=== PATIENT | female | born 1995 | race Two or more races ===

== ENCOUNTER 2024-12-03 12:02 | Emergency (ER) | payer BC, MEDICAID, SELFPAY ==
[2024-12-03 12:03] VITALS: BMI 24.8
[2024-12-03 12:11] VITALS: BP 116/72; PULSE 79; RESP 18; TEMP 36.9; O2SAT 98
--- NOTE | 2024-12-03 12:16 | EDNOTE_ITS ---
ED Female Urogenital RME/HPI General Chief complaint: Urogenital-Female Stated complaint: VAGINAL BLEEDING Time Seen by Provider: 12/03/24 12:04 Source: patient Arrival date/time: 12/03/24 12:02 28-year-old female with no known medical history presents to the emergency room with a chief complaint of vaginal spotting x 1 day. Patient is currently 6 weeks . She is a G4, P2. Patient denies any dysuria or vaginal discharge. Mode of arrival: ambulatory Limitations: no limitations Related Data Home Medications ?Medication ?Instructions ?Recorded ?Confirmed ferrous sulfate 324 mg (65 mg 324 mg PO QDAY 07/09/19 08/19/19 iron) tablet,delayed release vit no.95-ferrous 1 tab PO QDAY 07/09/1907/29 fumarate 28 mg-folic acid 800 mcg tablet () hydroxyzine HCl 25 mg tablet 25 mg PO QID PRN Itching 08/19/19 08/19/19 Previous Rx's ?Medication ?Instructions ?Recorded hydrocodone 5 mg-acetaminophen 300 1 tab PO Q4H PRN pa in #30 tabs 08/19/19 mg tablet acetaminophen 650 mg 650 mg PO Q8H PRN fever or p ain 04/27/22 tablet,extended release #30 tabs cyclobenzaprine 10 mg tablet 10 mg PO Q8H PRN muscle s pasm / 04/27/22 pain #15 tabs ibuprofen 600 mg tablet 600 mg PO Q8H PRN fever or p ain 04/27/22 #30 tabs Allergies Allergy/AdvReac Type Severity Reaction Status Date / Time No Known Allergies Allergy Verified 04/27/22 13:02 Review of Systems Review of Systems Systems Reviewed: All systems reviewed, normal except as documented Constitutional Constitutional: Reports system reviewed and no additional complaints, except as documented, Denies fatigue, Denies fever(s), Denies headache(s) and Denies weakness Eyes Eyes: Reports system reviewed and no additional complaints, except as documented, Denies blurry vision and Denies change in vision ENT Ears, Nose, Mouth, and Throat: Reports system reviewed and no additional complaints, except as documented, Denies otalgia, Denies headache(s), Denies nasal congestion, Denies throat swelling and Denies vertigo Cardiovascular Cardiovascular: Reports system reviewed and no additional complaints, except as documented, Denies chest pain, Denies dyspnea and Denies dyspnea on exertion Respiratory Respiratory: Reports system reviewed and no additional complaints, except as documented, Denies chest congestion, Denies cough, Denies dyspnea, Denies dyspnea on exertion and Denies wheezing Gastrointestinal Gastrointestinal: Reports system reviewed and no additional complaints, except as documented, Denies abdominal pain, Denies cramping, Denies nausea and Denies vomiting Genitourinary Genitourinary: Reports system reviewed and no additional complaints, except as documented, Reports abnormal vaginal bleeding and Reports flank pain Musculoskeletal Musculoskeletal: Reports system reviewed and no additional complaints, except as documented and Denies back pain Integumentary/Breasts Skin/Breast: Reports system reviewed and no additional complaints, except as documented and Denies wounds Neurologic Neurologic: Reports system reviewed and no additional complaints, except as documented, Denies confusion, Denies headache(s), Denies lack of coordination, Denies vertigo and Denies weakness Psychiatric Psychiatric: Reports system reviewed and no additional complaints, except as documented, Denies anxiety, Denies confusion, Denies depression, Denies paranoia, Denies suicidal ideation and Denies tactile hallucinations Endocrine Endocrine: Reports system reviewed and no additional complaints, except as documented and Denies fatigue Hematologic/Lymphatic Hematologic/Lymphatic: Reports system reviewed and no additional complaints, except as documented and Denies lymphadenopathy Allergic/Immunologic Allergic/Immunologic: Reports system reviewed and no additional complaints, except as documented, Denies throat swelling, Denies urticaria and Denies wheezing Past Medical History Past Medical History NEUROLOGIC: Negative Neurological Disorders or Seizures CARDIAC: Negative Cardiac Disorders or Congestive Heart Failure RESPIRATORY: Positive Asthma (inhaler 1 month ago); Negative Chronic Obstructive Pulmonary Disease (COPD) GASTROINTESTINAL: Negative Gastrointestinal Disorders, Hepatitis or Colorectal Cancer GENITOURINARY: Negative Genitourinary Disorders, Renal Disease or Prostate Cancer REPRODUCTIVE: Negative Breast Cancer or Testicular Cancer MUSCULOSKELETAL: Negative Musculoskeletal Disorders or Bone Cancer ENDOCRINE: Negative Endocrine Disorders, Diabetes Mellitus Type 1 or Diabetes Mellitus Type 2 HEMATOLOGIC: Negative Blood Disorders OTHER HISTORY: Negative Hospitalization, Autoimmune Disease, Down Syndrome, Developmental Delay, Shingles, Falls, Blood Transfusions, Blood Transfusion Reaction, Anesthesia Reactions, Organ Transplant, Chemotherapy, Radiation Therapy, Hyperbaric Therapy, MRSA, VRSA, Vancomycin-Resistant Enterococci, Human Immunodeficiency Virus (HIV), Chicken Pox, Measles, Mumps, Rubella (Spanish Measles), Pertussis, Clostridium Difficile, Cancer, Breast Cancer, Cervical Cancer, Colorectal Cancer, Lung Cancer, Ovarian Cancer, Prostate Cancer or Testicular Cancer Family History FAMILY HISTORY: Positive Family Cancer; Negative Family Psychiatric Problems, Family Respiratory Disorders, Family Cardiac Disorders, Family Gastrointestinal Problems, Family Surgery or Family Anesthesia Reaction Surgical History SURGICAL: Negative Section or Organ Transplant Social History SMOKING STATUS: Never smoker ED Exam General Limitations: Present no limitations General appearance: Present alert and in no apparent distress Head Head exam: Present atraumatic Eye Eye exam: Present normal appearance, PERRL and EOMI ENT ENT exam: Present normal exam, normal oropharynx and mucous membranes moist Neck Neck exam: Present normal inspection, full ROM and trachea midline Chest Chest inspection: Present normal inspection and symmetric chest wall rise Respiratory Respiratory exam: Present normal lung sounds bilaterally Cardiovascular Cardiovascular exam: Present regular rate, normal rhythm and normal heart sounds Abdominal Exam Abdominal exam: Present soft, tenderness and normal bowel sounds Abdominal tenderness: Present RLQ, LLQ, suprapubic and mild Extremities Exam Extremities exam: Present normal inspection and full ROM Back Exam Back exam: Present normal inspection and full ROM Neurological Exam Neurological exam: Present alert, oriented X3 and CN II-XII intact Psychiatric Psychiatric exam: Present normal affect and normal mood Skin Skin exam: Present warm, dry, intact and normal color Course Quality Measures none Orders Category Date Time Status US OB <= 14 weeks fetus Stat Exams 12/03/24 12:16 Completed ABO/RH Type Stat Lab 12/03/24 13:26 Completed Beta HCG,Quantitative Stat Lab 12/03/24 13:26 Completed CBC Stat Lab 12/03/24 13:26 Completed CMP [Comprehensive Metabolic Panel] Stat Lab 12/03/24 13:26 Completed UA [Urinalysis] Stat Lab 12/03/24 12:55 Completed Vital Signs Vital signs: Vital Signs Temperature 98.4 F 12/03/24 12:11 Pulse Rate 79 12/03/24 12:11 Respiratory Rate 18 12/03/24 12:11 Blood Pressure 116/72 12/03/24 12:11 Pulse Oximetry (%) 98 12/03/24 12:11 Oxygen Delivery Method Room Air 12/03/24 12:11 O2 saturation 98% within normal limits Urogenital - Female MDM Narrative MDM Narrative:: 28-year-old female with no known medical history presents to the emergency room with a chief complaint of vaginal spotting x 1 day. Patient is currently 6 weeks . She is a G4, P2. Patient denies any dysuria or vaginal discharge. Patient is hemodynamically stable and in no apparent distress Physical examination shows a soft nontender abdomen. The patient has no tenderness to the right lower quadrant or left lower quadrant. Ultrasound OB was completed and at this time there is no intrauterine gestation that was visualized. Patient's hCG levels are at 29,444 The patient was educated to follow-up with her AIRPORT RAMP SUPERVISOR in the next 24 to 48 hours or return in 3 days for repeat ultrasound and blood work Patient was discharged and educated to follow-up with primary care provider in the next 24 to 48 hours and return to the emergency room for any evidence of worsening signs or symptoms Patient data External records reviewed:: [facility] records Clinical information provided by:: patient Social determinants that could affect healthcare access:: none Patient has the following chronic illnesses:: No chronic illness How is presenting disease/condition affected by chronic disease/condition?: no chronic disease Evaluation data The following diagnostics were reviewed and interpreted by me:: lab results Lab and/or radiology exams considered but not ordered:: Labs and radiology exams considered and ordered Interpretation Summary: OB ultrasound-Findings: Uterus 8.7 cm intrauterine gestational sac 1.3 cm correspondences 6 weeks 1 day gestational age No pole, no cardiac activity Right ovary 2.8 cm arterial flow Left ovary 3.7 cm arterial flow 15 mm cyst IMPRESSION: Empty intrauterine gestational sac corresponding to 6 weeks 1 day gestational age Recommend transvaginal pelvic sonography follow-up to document viability Medications / Prescriptions Medications or Prescriptions considered but not ordered:: No medication given Medication administrations:: No medication given Consultations Consultation(s) initiated? (list below): No Diagnosis Urogenital Female Differential Diagnosis: urinary tract infection, cystitis and other (Threatened /subchorionic hemorrhage/vaginal bleeding) Most likely diagnosis given after review of the tests above:: Vaginal bleeding in Admission Indicated Admission indicated?: not indicated Admission Request Was there a request for admission?: No Disposition Plan Disposition Plan: Discharge Discharge Attestation Discharge Attestation: The patient and all family members were given an opportunity to ask questions and understood the discharge instructions. Discharge instructions specifically effects, indications for sooner follow up or return to the emergency department, and the expected course of current diagnosis. Patient condition: Stable Discharge Plan Plan Patient Disposition: HOME (Self Care) Discharge Disposition comment: Stable Prescriptions/Referrals Prescriptions/Med Rec: No Action hydroxyzine HCl 25 mg Tablet 25 mg PO QID PRN (Reason: Itching) hydrocodone-acetaminophen 5-300 mg tablet 1 tab PO Q4H MDD 5 PRN (Reason: pain) Qty: 30 0RF PNV cmb#95-ferrous fumarate-FA [] 28 mg iron- 800 mcg Tablet 1 tab PO QDAY ferrous sulfate 324 mg (65 mg iron) Tablet,Delayed Release (Dr/Ec) 324 mg PO QDAY cyclobenzaprine 10 mg tablet 10 mg PO Q8H PRN (Reason: muscle spasm / pain) Qty: 15 0RF acetaminophen 650 mg tablet extended release 650 mg PO Q8H PRN (Reason: fever or pain) Qty: 30 0RF Rx Instructions: swallow whole; do not chew/break/dissolve/open ibuprofen 600 mg tablet 600 mg PO Q8H PRN (Reason: fever or pain) Qty: 30 0RF Referrals: No Primary/Family,Physician [Primary Care Provider] - In 1 week Problem List Clinical Impression: Vaginal bleeding in patient at less than 20 weeks gestation Patient/Caregiver Discharge Instructions Education Materials: Bleeding During Early , ED Dysfunctional Uterine Bleeding Additional Instructions: Please follow-up with your AIRPORT RAMP SUPERVISOR in the next 24 to 48 hours Radiologist is recommending a close follow-up and a repeat ultrasound in 3 days. At this time your is unable to be visualized with an ultrasound. Your hCG levels at this time are 29,444. If you cannot get an appointment with your AIRPORT RAMP SUPERVISOR please return to the emergency room and we will repeat your blood work and ultrasound here Patient was discharged and educated to follow-up with primary care provider in the next 24 to 48 hours and return to the emergency room for any evidence of worsening signs or symptoms Print Language: Yemeni Stand Alone Forms: Maggie Award Info., Work/School Release, Patient Portal Info Letter PA/DIVISION TOLL WIRE CHIEF Supervising Physician PA/DIVISION TOLL WIRE CHIEF Supervising Physician: Dr. Bar
--- NOTE | 2024-12-03 12:16 | XR_ITS ---
Examination: Complete OB ultrasound, less than 14 weeks, transabdominal Date and time of exam: December 03, 2024 1227 hours INDICATIONS: Pelvic pain and vaginal bleeding today Technique: Obstetrical ultrasound images less than 14 weeks performed via transabdominal imaging Findings: Uterus 8.7 cm intrauterine gestational sac 1.3 cm correspondences 6 weeks 1 day gestational age No pole, no cardiac activity Right ovary 2.8 cm arterial flow Left ovary 3.7 cm arterial flow 15 mm cyst IMPRESSION: Empty intrauterine gestational sac corresponding to 6 weeks 1 day gestational age Recommend transvaginal pelvic sonography follow-up to document viability
[2024-12-03 13:04] LABS: Collection Type, Urine Clean Catch
[2024-12-03 13:39] LABS: Basophils # (Auto) 0.1 Thou/mm3 (0.0-0.2); Basophils % (Auto) 1 % (0-2.5); Eosinophils # (Auto) 0.3 Thou/mm3 (0.0-0.5); Eosinophils % (Auto) 4 % (0-10); Hematocrit 35.5 % (36.0-46.0); Hemoglobin 12.9 g/dL (12.0-16.0); Immature Granulocytes % (Auto) 0 % (0-0); Immature Granulocytes Auto 0.02 Thou/mm3 (0.00-0.00); Lymphocytes # (Auto) 2.4 Thou/mm3 (1.0-4.8); Lymphocytes % (Auto) 28 % (10-50); Mean Corpuscular HGB Conc 36.3 g/dl (31.0-37.0); Mean Corpuscular Hemoglobin 30.2 pg (25.0-35.0); Mean Corpuscular Volume 83 fL (80-100); Monocytes # (Auto) 0.7 Thou/mm3 (0.0-0.8); Monocytes % (Auto) 8 % (0-12); Neutrophils # (Auto) 5.1 Thou/mm3 (1.8-7.7); Neutrophils % (Auto) 59 % (37-80); Nucleated Red Blood Cell % 0 /100 WBC (0); Platelet Count 276 Thou/mm3 (140-440); RDW Standard Deviation 37.6 fL (36.4-46.3); Red Blood Count 4.27 Miln/mm3 (4.00-5.20); White Blood Count 8.6 Thou/mm3 (3.6-11.0)
[2024-12-03 14:07] LABS: Alanine Aminotransferase 35 U/L (10-49); Albumin, Serum 4.6 gm/dL (3.5-5.0); Albumin/Globulin Ratio 2.2 (1.2-2.2); Alkaline Phosphatase 78 U/L (46-116); Anion Gap 10 (7-16); BUN/Creatinine Ratio 8 Ratio (12-20); Bilirubin,Total 0.5 mg/dL (0.3-1.2); Blood Urea Nitrogen 5 mg/dL (9-23); Calcium 10.1 mg/dL (8.3-10.6); Calcium (Corrected) 10.1 mg/dL (8.5-10.1); Carbon Dioxide 24.1 mMol/L (20.0-31.0); Chloride 100 mMol/L (98-107); Creatinine (Component) 0.6 mg/dL (0.6-1.3); Estimated Creatinine Clearance 99.8 mL/min (>60); Globulin 2.1 gm/dL (2.3-3.5); Glucose 86 mg/dL (74-106); Osmolality,Calculated 264 (275-295); Potassium 3.8 mMol/L (3.4-5.1); Sodium 134 mMol/L (136-145); Total Protein 6.7 gm/dL (5.7-8.2); eGFR > 60 See Note
[2024-12-03 14:12] LABS: Bilirubin,Urine Negative (Negative); Blood,Urine 2+ (Negative); Clarity,Urine Clear (Clear/Hazy); Color,Urine Lt-Yellow (Lt Yel-Yel); Glucose, Urine Negative (Negative); Ketones,Urine 1+ (Negative); Leukocyte Esterase,Urine Negative (Negative); Nitrite,Urine Negative (Negative); PH,Urine 6.5 (5.0-7.0); Protein,Urine Negative (Neg - Trace); RBC,Urine 21 /hpf (0-3); Specific Gravity,Urine 1.008 (1.001-1.035); Squamous Epithelial Cell,Urine 3 /hpf (0-5); Urobilinogen,Urine Negative mg/dL (0.0-1.0); WBC,Urine 3 /hpf (0-5)
[2024-12-03 14:38] LABS: Beta HCG,Quantitative 28444 mIU/mL (<5.0)
[2024-12-03 15:01] VITALS: BP 94/62; PULSE 72; RESP 16; TEMP 36.8; O2SAT 98
== END 2024-12-03 15:02 | disposition home or self-care (01) ==
PROVIDERS: Nurse Practitioner Family; Emergency Provider Family Medicine
DX: O20.9 Hemorrhage in early pregnancy, unspecified (principal); Z3A.01 Less than 8 weeks gestation of pregnancy
CPT/HCPCS: 36415; 76801; 80053; 81001; 84702; 85025; 86900; 86901; 99284

== ENCOUNTER 2024-12-11 16:10 | Emergency (ER) | payer BC, MEDICAID, SELFPAY ==
[2024-12-11 16:38] VITALS: BP 103/67; PULSE 75; RESP 18; TEMP 37.1; O2SAT 99
--- NOTE | 2024-12-11 16:41 | PD.EDRME ---
Rapid Medical Screening Exam RME Arrival date/time: 12/11/24 16:10 28-year-old female presents to the emergency department today for complaints of nausea vomiting and pelvic pain Chief Complaint: Nausea/Vomiting/Diarrhea Time Seen by Provider: 12/11/24 16:24 Vital signs: Vital Signs Temperature 98.8 F 12/11/24 16:38 Pulse Rate 75 12/11/24 16:38 Respiratory Rate 18 12/11/24 16:38 Blood Pressure 103/67 12/11/24 16:38 Pulse Oximetry (%) 99 12/11/24 16:38 Oxygen Delivery Method Room Air 12/11/24 16:38
--- NOTE | 2024-12-11 16:45 | XR_ITS ---
Examination: Complete OB ultrasound, less than 14 weeks, transabdominal Date and time of exam: December 11, 2024 1656 hours INDICATIONS: Onset of vaginal bleeding beginning 3 days ago Technique: Obstetrical ultrasound images less than 14 weeks performed via transabdominal imaging Findings: A normal shaped single intrauterine gestation is present in the uterus. pole 1.0 cm corresponds to 7 week 0 day gestational age Cardiac motion 1:30 BPM Ultrasonographic survey of visible and placental structures unremarkable. Amniotic fluid volume appears appropriate for this estimated gestational age. Right ovary 3.2 cm arterial flow Left ovary 4.3 cm arterial flow IMPRESSION: Viable intrauterine gestation 7 weeks 0 days.
[2024-12-11 17:06] LABS: Basophils # (Auto) 0.1 Thou/mm3 (0.0-0.2); Basophils % (Auto) 1 % (0-2.5); Eosinophils # (Auto) 0.2 Thou/mm3 (0.0-0.5); Eosinophils % (Auto) 2 % (0-10); Hematocrit 37.1 % (36.0-46.0); Hemoglobin 13.3 g/dL (12.0-16.0); Immature Granulocytes % (Auto) 0 % (0-0); Immature Granulocytes Auto 0.02 Thou/mm3 (0.00-0.00); Lymphocytes % (Auto) 27 % (10-50); Mean Corpuscular HGB Conc 35.8 g/dl (31.0-37.0); Mean Corpuscular Volume 84 fL (80-100); Monocytes # (Auto) 0.8 Thou/mm3 (0.0-0.8); Monocytes % (Auto) 7 % (0-12); Neutrophils % (Auto) 64 % (37-80); Nucleated Red Blood Cell % 0 /100 WBC (0); Platelet Count 303 Thou/mm3 (140-440); RDW Standard Deviation 37.2 fL (36.4-46.3); Red Blood Count 4.43 Miln/mm3 (4.00-5.20)
[2024-12-11] MEDS: METOCLOPRAMIDE 5 MG TABLET 10 MG PO (17:12)
[2024-12-11 17:26] LABS: Collection Type, Urine Clean Catch
[2024-12-11 17:32] LABS: Bacteria,Urine Rare; Bilirubin,Urine Negative (Negative); Blood,Urine Negative (Negative); Clarity,Urine Clear (Clear/Hazy); Color,Urine Yellow (Lt Yel-Yel); Glucose, Urine Negative (Negative); Ketones,Urine 4+ (Negative); Leukocyte Esterase,Urine Negative (Negative); Nitrite,Urine Negative (Negative); Protein,Urine Trace (Neg - Trace); RBC,Urine 1 /hpf (0-3); Squamous Epithelial Cell,Urine 3 /hpf (0-5); Urobilinogen,Urine Negative mg/dL (0.0-1.0); WBC,Urine 1 /hpf (0-5)
[2024-12-11 18:02] LABS: Alanine Aminotransferase 32 U/L (10-49); Albumin, Serum 4.4 gm/dL (3.5-5.0); Albumin/Globulin Ratio 1.9 (1.2-2.2); Alkaline Phosphatase 73 U/L (46-116); Anion Gap 9 (7-16); Aspartate Amino Transferase 24 U/L (0-34); BUN/Creatinine Ratio 8 Ratio (12-20); Bilirubin,Total 0.3 mg/dL (0.3-1.2); Blood Urea Nitrogen < 5 mg/dL (9-23); Calcium 9.3 mg/dL (8.3-10.6); Calcium (Corrected) 9.3 mg/dL (8.5-10.1); Chloride 104 mMol/L (98-107); Creatinine (Component) 0.6 mg/dL (0.6-1.3); Globulin 2.3 gm/dL (2.3-3.5); Glucose 78 mg/dL (74-106); Lipase 26 U/L (12-53); Osmolality,Calculated 264 (275-295); Potassium 3.8 mMol/L (3.4-5.1); Sodium 134 mMol/L (136-145); Total Protein 6.7 gm/dL (5.7-8.2); eGFR > 60 See Note
[2024-12-11 18:40] LABS: Beta HCG,Quantitative 112970 mIU/mL (<5.0)
--- NOTE | 2024-12-11 20:14 | EDNOTE_ITS ---
ED OB Contraction Preg RMI/HPI General Chief complaint: Nausea/Vomiting/Diarrhea Stated complaint: N/V, UNABLE TO KEEP FOOD DOWN, SPOTTING, PREG 7WKS Time Seen by Provider: 12/11/24 16:24 Arrival date/time: 12/11/24 16:10 RME / HPI RME / HPI Narrative: 12/11/24 16:10 28-year-old female presents to the emergency department today for complaints of nausea vomiting and pelvic pain DR. GALLAGHER MAIN ED EVALUATION: 28 y/o GA 7 weeks female presents to ED c/o dehydration and vomiting x 4 days. She states she experienced hyperemesis with both prior pregnancies throughout entire gestational periods. She also reports minor vaginal bleeding which she was seen for here 8 days ago. Patient was advised by her OB to come to ED for IV fluids today. Denies dysuria, diarrhea, and constipation. No other concerns or complaints expressed at this time. Related Data Home Medications ?Medication ?Instructions ?Recorded ?Confirmed ferrous sulfate 324 mg (65 mg 324 mg PO QDAY 07/09/19 08/19/19 iron) tablet,delayed release vit no.95-ferrous 1 tab PO QDAY 07/09/1907/29 fumarate 28 mg-folic acid 800 mcg tablet () hydroxyzine HCl 25 mg tablet 25 mg PO QID PRN Itching 08/19/19 08/19/19 Previous Rx's ?Medication ?Instructions ?Recorded hydrocodone 5 mg-acetaminophen 300 1 tab PO Q4H PRN pa in #30 tabs 08/19/19 mg tablet acetaminophen 650 mg 650 mg PO Q8H PRN fever or p ain 04/27/22 tablet,extended release #30 tabs cyclobenzaprine 10 mg tablet 10 mg PO Q8H PRN muscle s pasm / 04/27/22 pain #15 tabs ibuprofen 600 mg tablet 600 mg PO Q8H PRN fever or p ain 04/27/22 #30 tabs Allergies Allergy/AdvReac Type Severity Reaction Status Date / Time No Known Allergies Allergy Verified 12/11/24 16:12 Review of Systems Review of Systems Systems Reviewed: All systems reviewed, normal except as documented Past Medical History Past Medical History RESPIRATORY: Positive Asthma (inhaler 1 month ago) Family History FAMILY HISTORY: Positive Family Cancer ED Exam Narrative Physical exam: GEN. APPEARANCE: The patient is alert awake oriented X-3 in no distress, lying down comfortably, does not look ill/toxic.? Patient has good eye contact.? Celi ent is cooperative. VITALS:? All vitals were reviewed and the pulse ox is % on room air which is normal according to my interpretation. HEENT: Normocephalic, atraumatic.? Pupils are equal and reactive.? Oral mucosa is moist. Patent Nares NECK: Supple, nontender, no thyromegaly, no meningismus, no JVD CHEST: Symmetrical, atraumatic, and with equal expansion , Nontender on palpation no deformity and no crepitus. CARDIOVASCULAR: Heart regular rhythm no murmur or gallop rub or extra beats. LUNGS: Clear to auscultation bilaterally with symmetrical chest rise.? No laboring tachypnea or wheezing.? No intercostal subcostal retraction.? No rales and no rhonchi. ABDOMEN: Soft, flat, nontender to palpation, no guarding or rebound tenderness.? There are no abnormal masses palpated.? Active and normal bowel sounds. EXTREMITIES: Nontender.? No edema.? No cyanosis.? Patient is able to move all 4 extremities well, with full ROM and good CSM. SKIN: Warm and dry, no jaundice or rashes noted. NEURO: Patient is [place] x 4, Cranial nerves II through XII grossly intact.? There is no focal neurologic deficits noted.? GCS is 15, PNS and IRON POURER appear grossly intact. PSYCHIATRIC: Patient is in normal mood and affect. Course Quality Measures none Orders Category Date Time Status US OB <= 14 weeks fetus Stat Exams 12/11/24 16:45 Completed ABO/RH Type Stat Lab 12/11/24 16:55 Completed Beta HCG,Quantitative Stat Lab 12/11/24 16:55 Completed CBC Stat Lab 12/11/24 16:55 Completed Comprehensive Metabolic Panel Stat Lab 12/11/24 16:55 Completed Lipase Stat Lab 12/11/24 16:55 Completed UA [Urinalysis] Stat Lab 12/11/24 17:13 Completed Urine Culture Stat Lab 12/11/24 17:13 Received Metoclopramide [Reglan] Med 12/11/24 16:45 Discontinued 10 mg PO X1 ONE Ringers Lactated 1000 ml [Lactated Ringers] 1,000 ml Med 12/11/24 20:14 Discontinued IV 999 mls/hr Vital Signs Vital signs: Vital Signs Temperature 98.8 F 12/11/24 16:38 Pulse Rate 75 12/11/24 16:38 Respiratory Rate 18 12/11/24 16:38 Blood Pressure 103/67 12/11/24 16:38 Pulse Oximetry (%) 99 12/11/24 16:38 Oxygen Delivery Method Room Air 12/11/24 16:38 OB/Uterine Contractions MDM Narrative MDM Narrative:: Scribe Attestation: ICecilia, am scribing for and in the presence of Dr. Gallagher. Provider Notation: Although this document has been carefully reviewed, there may still be some phonetic and other typographical errors.? These errors are purely grammatical due to imperfections in the software program and should not be construed in any way to? compromise the substance of the patient's medical care during this visit. Patient data External records reviewed:: [facility] previous records (Reviewed prior ED redcords from 12/03/24. Patient was seen for Vaginal bleeding in patient at less than 20 weeks gestation.) Clinical information provided by:: patient Social determinants that could affect healthcare access:: none Patient has the following chronic illnesses:: Asthma How is presenting disease/condition affected by chronic disease/condition?: uneffected by Evaluation data The following diagnostics were reviewed and interpreted by me:: lab results Lab and/or radiology exams considered but not ordered:: None Interpretation Summary: Refer to MDM above. Medications / Prescriptions Medications or Prescriptions considered but not ordered:: None Medication administrations:: Medication Administration History Discontinued Medications Lactated Ringer's (Lactated Ringers) 1,000 mls @ 999 mls/hr IV .Q1H1M ONE Stop: 12/11/24 21:14 Last Infusion: 12/11/24 21:30 Dose: Infused Documented By: Admin: 12/11/24 20:51 Dose: 999 mls/hr Documented By: AYESHA Metoclopramide HCl (Metoclopramide 5 Mg Tablet) 10 mg PO X1 ONE Stop: 12/11/24 16:46 Last Admin: 12/11/24 17:12 Dose: 10 mg Documented By: SUMAYA See above if any Consultations Consultation(s) initiated? (list below): No Diagnosis OB Contractions Differential Diagnosis: other (Hyperemesis, Dehydration, Vertigo, Gastritis, Influenza, Electrolyte Abnormality) Most likely diagnosis given after review of the tests above:: First trimester , Hyperemesis gravidarum, Blood type +O, Threatened miscarriage, Abnormal vaginal bleeding during Admission Indicated Admission indicated?: not indicated Explain why admission is indicated or not indicated:: Patient does not meet admission criteria. Admission Request Was there a request for admission?: No Disposition Plan Disposition Plan: Discharge Discharge Attestation Discharge Attestation: The patient and all family members were given an opportunity to ask questions and understood the discharge instructions. Discharge instructions specifically effects, indications for sooner follow up or return to the emergency department, and the expected course of current diagnosis. Patient condition: Stable Discharge Plan Plan Patient Disposition: HOME (Self Care) Prescriptions/Referrals Prescriptions/Med Rec: No Action hydroxyzine HCl 25 mg Tablet 25 mg PO QID PRN (Reason: Itching) hydrocodone-acetaminophen 5-300 mg tablet 1 tab PO Q4H MDD 5 PRN (Reason: pain) Qty: 30 0RF PNV cmb#95-ferrous fumarate-FA [] 28 mg iron- 800 mcg Tablet 1 tab PO QDAY ferrous sulfate 324 mg (65 mg iron) Tablet,Delayed Release (Dr/Ec) 324 mg PO QDAY cyclobenzaprine 10 mg tablet 10 mg PO Q8H PRN (Reason: muscle spasm / pain) Qty: 15 0RF acetaminophen 650 mg tablet extended release 650 mg PO Q8H PRN (Reason: fever or pain) Qty: 30 0RF Rx Instructions: swallow whole; do not chew/break/dissolve/open ibuprofen 600 mg tablet 600 mg PO Q8H PRN (Reason: fever or pain) Qty: 30 0RF Referrals: Roger Mullen MD [Primary Care Provider] - In 1 week Problem List Clinical Impression: Hyperemesis gravidarum, Vaginal bleeding during , Type O blood, Rh positive, Threatened miscarriage, First trimester Patient/Caregiver Discharge Instructions Other Activity Instructions:: Please follow-up with your primary care doctor as well as your electronic controls repairer supervisor this week. Any bleeding in but you are at risk for miscarriage. Education Materials: ED Hyperemesis Gravidarum Print Language: Persian Stand Alone Forms: Maggie Award Info., Patient Portal Info Letter
[2024-12-11] MEDS: RINGERS LACTATED 1000 ML 1,000 ML 999 ML IV (20:51)
--- NOTE | 2024-12-11 22:13 | PC.NURSE ---
notified provider pt stated she feels better and wishes to leave and does not want to wait for discharge paperwork.
== END 2024-12-11 22:17 | disposition home or self-care (01) ==
PROVIDERS: Nurse Practitioner Primary Care; Emergency Provider Emergency Medicine; PCP Family Medicine
DX: O20.0 Threatened abortion (principal); Z67.40 Type O blood, Rh positive; O21.0 Mild hyperemesis gravidarum; Z3A.01 Less than 8 weeks gestation of pregnancy
CPT/HCPCS: 36415; 76801; 80053; 81001; 83690; 84702; 85025; 86900; 86901; 87086; 96360; 99284; J7120; A9270

== ENCOUNTER 2025-01-20 21:36 | Emergency (ER) | payer BC, MEDICAID, SELFPAY ==
[2025-01-20 21:37] VITALS: BMI 22.1
[2025-01-20 21:46] VITALS: BP 103/69; PULSE 99; RESP 16; TEMP 37; O2SAT 97
--- NOTE | 2025-01-21 01:02 | PD.EDRME ---
Rapid Medical Screening Exam RME Arrival date/time: 01/20/25 21:36 Chief Complaint: Nausea/Vomiting/Diarrhea Time Seen by Provider: 01/21/25 00:36 Vital signs: Vital Signs Temperature 98.6 F 01/20/25 21:46 Pulse Rate 99 01/20/25 21:46 Respiratory Rate 16 01/20/25 21:46 Blood Pressure 103/69 01/20/25 21:46 Pulse Oximetry (%) 97 01/20/25 21:46 Oxygen Delivery Method Room Air 01/20/25 21:46 Vital signs reviewed by provider: Yes RME Narrative: 29-year-old female, currently 13 weeks with a past medical history of hyperemesis gravidarum presents to the ED with a complaint of nausea and vomiting and inability to keep anything down. She denies any fever or chills, diarrhea or abdominal pain. She has had some dysuria but decreased urination. I have greeted and performed a focused initial assessment of this patient. A comprehensive ED assessment and evaluation of the patient, analysis of all test results, and completion of the medical decision making process will be conducted by additional ED providers.
--- NOTE | 2025-01-21 01:07 | XR_ITS ---
Examination: Complete OB ultrasound, less than 14 weeks, transabdominal Date and time of exam: January 21, 2025, 0126 hours INDICATIONS: Nausea vomiting beginning 7 weeks ago Technique: Obstetrical ultrasound images less than 14 weeks performed via transabdominal imaging Findings: A normal shaped single intrauterine gestation is present in the uterus. CRL 7.2 cm corresponds to 13 weeks 3 days gestational age. Cardiac motion 150 BPM. Ultrasonographic survey of visible and placental structures unremarkable. Amniotic fluid volume appears appropriate for this estimated gestational age. Right ovary obscured by bowel gas. Left ovary 2.8 cm arterial flow IMPRESSION:: Viable intrauterine gestation 13 weeks 3 days.
--- NOTE | 2025-01-21 01:07 | XR_ITS ---
Examination: Abdomen sonogram, Limited Date and time of exam: January 21, 2025, 0121 hours INDICATIONS: Nausea and vomiting beginning 7 weeks ago Technique: Real-time esposito scale transabdominal sonographic images of the upper abdomen obtained. Findings: Gallbladder sludge, negative for gallstones, normal gallbladder wall Normal common bile duct 0.5 cm Pancreatic head 1.8 cm Liver 14 cm no liver lesions Normal hepatopedal portal venous flow Patent IVC IMPRESSION: Gallbladder sludge Negative for cholelithiasis, negative for cholecystitis
[2025-01-21 01:48] VITALS: BP 131/86; PULSE 105; RESP 12; TEMP 36.8; O2SAT 99
[2025-01-21] MEDS: SODIUM CHLORIDE 0.9% 1000 ML 1,000 ML 999 ML IV (01:53)
[2025-01-21] MEDS: METOCLOPRAMIDE INJ 5 MG/ML VIAL 2 ML 10 MG IVP (01:53)
[2025-01-21 01:59] LABS: Collection Type, Urine Clean Catch; WBC,Urine 0 /hpf (0-5)
[2025-01-21 02:11] LABS: Basophils # (Auto) 0.1 Thou/mm3 (0.0-0.2); Basophils % (Auto) 1 % (0-2.5); Eosinophils # (Auto) 0.2 Thou/mm3 (0.0-0.5); Eosinophils % (Auto) 2 % (0-10); Hematocrit 35.6 % (36.0-46.0); Hemoglobin 12.5 g/dL (12.0-16.0); Immature Granulocytes Auto 0.03 Thou/mm3 (0.00-0.00); Lymphocytes # (Auto) 3.7 Thou/mm3 (1.0-4.8); Lymphocytes % (Auto) 35 % (10-50); Mean Corpuscular HGB Conc 35.1 g/dl (31.0-37.0); Mean Corpuscular Hemoglobin 30.0 pg (25.0-35.0); Mean Corpuscular Volume 86 fL (80-100); Monocytes # (Auto) 0.7 Thou/mm3 (0.0-0.8); Monocytes % (Auto) 7 % (0-12); Neutrophils # (Auto) 5.9 Thou/mm3 (1.8-7.7); Neutrophils % (Auto) 56 % (37-80); Nucleated Red Blood Cell # 0.00 Thou/mm3 (0.00-0.00); Nucleated Red Blood Cell % 0 /100 WBC (0); Platelet Count 303 Thou/mm3 (140-440); RDW Standard Deviation 39.4 fL (36.4-46.3); Red Blood Count 4.16 Miln/mm3 (4.00-5.20); White Blood Count 10.6 Thou/mm3 (3.6-11.0)
[2025-01-21 02:14] LABS: Amphetamine/Methamp Scrn,U Negative (Negative); Barbiturate Screen,Urine Negative (Negative); Benzodiazepines Screen,Urine Negative (Negative); Benzoylecgonine Screen, Ur Negative (Negative); Fentanyl Screen,Urine Negative (Negative); Opiate Screen,Urine Negative (Negative); THC Screen,Urine Negative (Negative)
[2025-01-21 02:15] LABS: Amorphous Crystals,Urine Present (Absent); Bacteria,Urine Rare; Bilirubin,Urine Negative (Negative); Blood,Urine Negative (Negative); Clarity,Urine Turbid (Clear/Hazy); Color,Urine Yellow (Lt Yel-Yel); Culture Indicated,Urine Not Indicated; Glucose, Urine Negative (Negative); Granular Casts,Urine < 1 /hpf (0-1); Hyaline Casts,Urine < 1 /hpf (0-1); Ketones,Urine Trace (Negative); Leukocyte Esterase,Urine Negative (Negative); Nitrite,Urine Negative (Negative); PH,Urine 7.0 (5.0-7.0); Protein,Urine Trace (Neg - Trace); RBC,Urine 2 /hpf (0-3); Specific Gravity,Urine 1.022 (1.001-1.035); Squamous Epithelial Cell,Urine 13 /hpf (0-5); Urobilinogen,Urine Negative mg/dL (0.0-1.0)
--- NOTE | 2025-01-21 02:32 | EDNOTE_ITS ---
Nausea/Vomit./Diarrhea-RME/HPI General Chief complaint: Nausea/Vomiting/Diarrhea Stated complaint: VOMITING Time Seen by Provider: 01/21/25 00:36 Arrival date/time: 01/20/25 21:36 RME / HPI RME / HPI Narrative: 29-year-old female, currently 13 weeks with a past medical history of hyperemesis gravidarum presents to the ED with a complaint of nausea and vomiting and inability to keep anything down. She denies any fever or chills, diarrhea or abdominal pain. She has had some dysuria but decreased urination. I have greeted and performed a focused initial assessment of this patient. A comprehensive ED assessment and evaluation of the patient, analysis of all test results, and completion of the medical decision making process will be conducted by additional ED providers. 29 y/o 13-week female with Hx of Hypermesis Gravidarum presents to ED c/o of nausea and vomiting. Patient has not been able to keep anything down and is requesting IVF. Denies any fever. No other concerns or complaints expressed at this time. Related Data Home Medications ?Medication ?Instructions ?Recorded ?Confirmed ferrous sulfate 324 mg (65 mg 324 mg PO QDAY 07/09/19 08/19/19 iron) tablet,delayed release vit no.95-ferrous 1 tab PO QDAY 07/09/1907/29 fumarate 28 mg-folic acid 800 mcg tablet () hydroxyzine HCl 25 mg tablet 25 mg PO QID PRN Itching 08/19/19 08/19/19 Previous Rx's ?Medication ?Instructions ?Recorded hydrocodone 5 mg-acetaminophen 300 1 tab PO Q4H PRN pa in #30 tabs 08/19/19 mg tablet acetaminophen 650 mg 650 mg PO Q8H PRN fever or p ain 04/27/22 tablet,extended release #30 tabs cyclobenzaprine 10 mg tablet 10 mg PO Q8H PRN muscle s pasm / 04/27/22 pain #15 tabs ibuprofen 600 mg tablet 600 mg PO Q8H PRN fever or p ain 04/27/22 #30 tabs Allergies Allergy/AdvReac Type Severity Reaction Status Date / Time No Known Allergies Allergy Verified 01/20/25 21:37 Review of Systems Review of Systems Systems Reviewed: All systems reviewed, normal except as documented Past Medical History Family History FAMILY HISTORY: Positive Family Cancer ED Exam Narrative Physical exam: Generally patient is alert and in no obvious distress abdomen soft bowel sounds present nondistended nontender heart is regular rate and rhythm without rubs or gallops lungs are auscultation equal bilaterally skin is warm pale and dry neurologic exam no focal motor or sensory deficits cranial nerves II through XII gross intact Course Quality Measures none Orders Category Date Time Status IV [Insert IV] NOW Care 01/21/25 01:05 Active NPO STAT Care 01/21/25 01:05 Active US OB <= 14 weeks fetus Stat Exams 01/21/25 01:07 Taken US abdomen limited Stat Exams 01/21/25 01:07 Taken Amylase Stat Lab 01/21/25 01:55 Completed CBC Stat Lab 01/21/25 01:55 Completed Comprehensive Metabolic Panel Stat Lab 01/21/25 01:55 Completed Drug Screen,Urine Stat Lab 01/21/25 01:14 Completed Lipase Stat Lab 01/21/25 01:55 Completed Magnesium Stat Lab 01/21/25 01:55 Completed Phosphorous Stat Lab 01/21/25 01:55 Completed Urinalysis, C/S if Indicated Stat Lab 01/21/25 01:14 Completed Metoclopramide Inj [Reglan Inj] Med 01/21/25 01:07 Discontinued 10 mg IVP X1 ONE Sodium Chloride 0.9% 1000 ml [Ns] 1,000 ml Med 01/21/25 01:05 Discontinued IV 999 mls/hr Vital Signs Vital signs: Vital Signs Temperature 98.6 F 01/20/25 21:46 Pulse Rate 99 01/20/25 21:46 Respiratory Rate 16 01/20/25 21:46 Blood Pressure 103/69 01/20/25 21:46 Pulse Oximetry (%) 97 01/20/25 21:46 Oxygen Delivery Method Room Air 01/20/25 21:46 Nausea/Vomiting/Diarrhea MDM Narrative MDM Narrative:: Scribe Attestation: I, Cecilia Trujillo, am scribing for and in the presence of Dr. Olivier. Provider Notation: Although this document has been carefully reviewed, there may still be some phonetic and other typographical errors.? These errors are purely grammatical due to imperfections in the software program and should not be construed in any way to? compromise the substance of the patient's medical care during this visit. Prior to my evaluation the patient was hydrated with a liter normal saline given Reglan 10 mg IV with benefit. Patient already has antinausea medication at home. She feels well and wishes to go home. ultrasound showed a live intrauterine fetus with heart rate of 150. I interpreted all labs. There was no significant abnormality. Patient data External records reviewed:: [facility] previous records (Reviewed prior ED records from 12/11/24. Patient was seen for First trimester .) Clinical information provided by:: patient Social determinants that could affect healthcare access:: none Patient has the following chronic illnesses:: None reported. How is presenting disease/condition affected by chronic disease/condition?: no chronic disease Evaluation data The following diagnostics were reviewed and interpreted by me:: lab results and radiology exam(s) Lab and/or radiology exams considered but not ordered:: None Interpretation Summary: RADIOLOGY US: Abdomen/Pelvis CT: Medications / Prescriptions Medications / Prescriptions considered but not ordered:: None Medication administrations:: Medication Administration History Discontinued Medications Sodium Chloride (Ns) 1,000 mls @ 999 mls/hr IV .Q1H1M ONE Stop: 01/21/25 02:05 Last Admin: 01/21/25 01:53 Dose: 999 mls/hr Documented By: AYESHA Metoclopramide HCl (Metoclopramide Inj 5 Mg/Ml Vial 2 Ml) 10 mg IVP X1 ONE; Protocol Stop: 01/21/25 01:08 Last Admin: 01/21/25 01:53 Dose: 10 mg Documented By: AYESHA See above if any. Consultations Consultation(s) initiated? (list below): No Diagnosis Nausea Differential Diagnosis: food poisoning, drug-induced nausea and vomiting, dehydration and other (Second trimester , Hyperemesis Gravidarum, Gastritis) Most likely diagnosis given after review of the tests above:: None Admission Indicated Admission indicated?: not indicated Explain why admission is indicated or not indicated:: Patient does not meet admission criteria. Admission Request Was there a request for admission?: No Disposition Plan Disposition Plan: Discharge Discharge Attestation Discharge Attestation: The patient and all family members were given an opportunity to ask questions and understood the discharge instructions. Discharge instructions specifically effects, indications for sooner follow up or return to the emergency department, and the expected course of current diagnosis. Patient condition: Stable Discharge Plan Plan Patient Disposition: HOME (Self Care) Prescriptions/Referrals Prescriptions/Med Rec: No Action hydroxyzine HCl 25 mg Tablet 25 mg PO QID PRN (Reason: Itching) hydrocodone-acetaminophen 5-300 mg tablet 1 tab PO Q4H MDD 5 PRN (Reason: pain) Qty: 30 0RF PNV no.95-ferrous fumarate-FA [] 28 mg iron- 800 mcg Tablet 1 tab PO QDAY ferrous sulfate 324 mg (65 mg iron) Tablet,Delayed Release (Dr/Ec) 324 mg PO QDAY cyclobenzaprine 10 mg tablet 10 mg PO Q8H PRN (Reason: muscle spasm / pain) Qty: 15 0RF acetaminophen 650 mg tablet extended release 650 mg PO Q8H PRN (Reason: fever or pain) Qty: 30 0RF Rx Instructions: swallow whole; do not chew/break/dissolve/open ibuprofen 600 mg tablet 600 mg PO Q8H PRN (Reason: fever or pain) Qty: 30 0RF Referrals: No Primary/Family,Physician [Primary Care Provider] - In 1 week Problem List Clinical Impression: Hyperemesis gravidarum Patient/Caregiver Discharge Instructions Additional Instructions: Continue home medications. Clear liquid diet and advance as tolerated. Follow- up with your TELEVISION ANALYZER physician as needed. Return to ER as needed or if condition worsens. Print Language: Frisian Stand Alone Forms: Maggie Award Info., Patient Portal Info Letter
[2025-01-21 02:39] LABS: Alanine Aminotransferase 68 U/L (10-49); Albumin, Serum 4.3 gm/dL (3.5-5.0); Albumin/Globulin Ratio 1.7 (1.2-2.2); Alkaline Phosphatase 72 U/L (46-116); Amylase 129 U/L (30-118); Anion Gap 11 (7-16); Aspartate Amino Transferase 43 U/L (0-34); BUN/Creatinine Ratio 10 Ratio (12-20); Bilirubin,Total 0.3 mg/dL (0.3-1.2); Blood Urea Nitrogen < 5 mg/dL (9-23); Calcium 9.6 mg/dL (8.3-10.6); Calcium (Corrected) 9.6 mg/dL (8.5-10.1); Carbon Dioxide 23.8 mMol/L (20.0-31.0); Chloride 102 mMol/L (98-107); Creatinine (Component) 0.5 mg/dL (0.6-1.3); Estimated Creatinine Clearance 105.3 mL/min (>60); Globulin 2.6 gm/dL (2.3-3.5); Glucose 84 mg/dL (74-106); Lipase 27 U/L (12-53); Magnesium 1.3 mg/dL (1.6-2.6); Osmolality,Calculated 270 (275-295); Phosphorous 4.2 mg/dL (2.4-5.1); Potassium 3.6 mMol/L (3.4-5.1); Sodium 137 mMol/L (136-145); Total Protein 6.9 gm/dL (5.7-8.2); eGFR > 60 See Note
[2025-01-21 02:50] VITALS: BP 104/63; PULSE 101; RESP 19; TEMP 36.7; O2SAT 99
--- NOTE | 2025-01-21 02:54 | PRELIM_ITS ---
Right upper quadrant abdominal ultrasound with Doppler and wave Doppler spectral analysis. January 21, 2025 0120 hours Clinical history: Abdominal pain, nausea/vomiting Technique: Grayscale and color flow images of the right upper quadrant are provided. Hepatic and portal veins were also imaged with color flow images. Comparison: None. Findings: The liver is normal in echogenicity. No intrahepatic biliary ductal dilatation. No gallbladder calculus, wall thickening or pericholecystic fluid is demonstrated. The common bile duct is normal in caliber at 4.5 mm. The pancreas is unremarkable to the extent visualized. The imaged portions of the right kidney are within normal limits. The portal vein is patent with hepatopetal flow normal wave Doppler spectral analysis. The inferior vena cava is patent with normal wave Doppler spectral analysis. Hurd sign is not available at the time of this report. Impression: Unremarkable right upper quadrant ultrasound examination. Report Electronically Signed By: Mateo Horta 01/21/2025 2:53:41 AM [EST]
--- NOTE | 2025-01-21 03:06 | PRELIM_ITS ---
Obstetric ultrasound (transabdominal) with Doppler and wave Doppler spectral analysis. January 21, 2025 0126 hours Clinical history: Nausea/vomiting/abdominal pain. Technique: Real-time ultrasound was performed using Duplex scanning including arterial inflow, venous outflow, color and spectral Doppler analysis of left ovary. Comparison: None. Findings: There is an intrauterine gestation with a single live fetus of mean gestational age 13 weeks and 3 days (CRL= 7.3 cm). cardiac activity is present at heart rate of 150 beats per minute. The uterus measures 13.9 x 7.0 x 10.1 cm. The right ovary was not visualized. The left ovary measures 2.7 x 1.9 x 2.8 cm and is unremarkable. Normal blood flow in the left ovary with normal wave Doppler spectral analysis. There is no free fluid in the pelvis. Impression: Intrauterine gestation with a single live fetus of mean gestational age of 13 weeks and 3 days. Other findings as described above. Report Electronically Signed By: Mateo Horta 01/21/2025 3:04:41 AM [EST]
== END 2025-01-21 02:55 | disposition home or self-care (01) ==
PROVIDERS: Physician Assistant; Emergency Provider Emergency Medicine
DX: O21.0 Mild hyperemesis gravidarum (principal); Z3A.13 13 weeks gestation of pregnancy
CPT/HCPCS: 36415; 76705; 76801; 80053; 80307; 81001; 82150; 83690; 83735; 84100; 85025; 96374; 99283; J2765; J7030

== ENCOUNTER 2025-02-06 12:16 | Emergency (ER) | payer BC, MEDICAID, SELFPAY ==
[2025-02-06 12:16] VITALS: BMI 22.6
--- NOTE | 2025-02-06 13:05 | EDNOTE_ITS ---
ED OB Contraction Preg RMI/HPI General Chief complaint: OB/Uterine Contractions Stated complaint: PREG 15WKS, SPOTTING TODAY Time Seen by Provider: 02/06/25 13:27 Arrival date/time: 02/06/25 12:16 RME / HPI RME / HPI Narrative: 29 year old female A1 currently 15 weeks gestational age presents to the ED for evaluation of vaginal bleeding beginning ~ 1 hour PROGRAM COORDINATOR. Reports amount of bleeding to be very light and spotty, less than her menses. Accompanied by lower abdominal discomfort and lower back pain (mostly to the left side). States she last had intercourse 2 days ago. Denies any cramping/contraction type pain. Denies abnormal vaginal discharge, fevers, vomiting, diarrhea, constipation, or urinary symptoms. LMP 10/18/2024 Related Data Home Medications ?Medication ?Instructions ?Recorded ?Confirmed ferrous sulfate 324 mg (65 mg 324 mg PO QDAY 07/09/19 08/19/19 iron) tablet,delayed release vit no.95-ferrous 1 tab PO QDAY 07/09/1907/29 fumarate 28 mg-folic acid 800 mcg tablet () hydroxyzine HCl 25 mg tablet 25 mg PO QID PRN Itching 08/19/19 08/19/19 Previous Rx's ?Medication ?Instructions ?Recorded hydrocodone 5 mg-acetaminophen 300 1 tab PO Q4H PRN pa in #30 tabs 08/19/19 mg tablet acetaminophen 650 mg 650 mg PO Q8H PRN fever or p ain 04/27/22 tablet,extended release #30 tabs cyclobenzaprine 10 mg tablet 10 mg PO Q8H PRN muscle s pasm / 04/27/22 pain #15 tabs ibuprofen 600 mg tablet 600 mg PO Q8H PRN fever or p ain 04/27/22 #30 tabs Allergies Allergy/AdvReac Type Severity Reaction Status Date / Time No Known Allergies Allergy Verified 01/20/25 21:37 Review of Systems Review of Systems Systems Reviewed: All systems reviewed, normal except as documented Past Medical History Past Medical History RESPIRATORY: Positive Asthma Family History FAMILY HISTORY: Positive Family Cancer Surgical History SURGICAL: Negative Section Social History SMOKING STATUS: Never smoker ED Exam Narrative Physical exam: Constitutional: Awake, alert, nontoxic, no acute distress HEENT: NC, AT, EOMI Neck: Supple CV: RRR, no m/r/g Lungs: CTAB, no w/r/r, no respiratory distress. Abd: Soft, gravid fundus, mildly tender to the suprapubic region, no HSM noted to palpation Extremities: No deformities, no edema noted Neuro: AAOx3 Skin: Warm, dry, intact Course Course Course Narrative: 1500h: Labs generally unremarkable. Urinalysis appears negative for UTI. Ultrasound was done?viable intrauterine noted. No indication for further emergent workup at this time. Advised on outpatient follow-up with CLIENT SERVICES COORDINATOR. Adequate fluid intake to avoid dehydration, return precautions advised. Stable for discharge. Quality Measures none Orders Category Date Time Status US OB >= 14 weeks Fetus Stat Exams 02/06/25 13:34 Completed ABO/RH Type Stat Lab 02/06/25 13:41 Results Beta HCG,Quantitative Stat Lab 02/06/25 13:41 Completed CBC Stat Lab 02/06/25 13:41 Completed CMP [Comprehensive Metabolic Panel] Stat Lab 02/06/25 13:41 Completed Urinalysis Stat Lab 02/06/25 13:53 Completed Vital Signs Vital signs: Vital Signs Temperature 98.5 F 02/06/25 13:13 Pulse Rate 88 02/06/25 13:13 Respiratory Rate 18 02/06/25 13:13 Blood Pressure 98/62 02/06/25 13:13 Pulse Oximetry (%) 99 02/06/25 13:13 Oxygen Delivery Method Room Air 02/06/25 13:13 Pulse ox is 99% on room air which is adequate. OB/Uterine Contractions MDM Narrative MDM Narrative:: Lilly Cheek am scribing for and in the presence of Dr. Stevens. Patient data External records reviewed:: [facility] previous records (I reviewed ED visit on 01/21/2025) Clinical information provided by:: patient Social determinants that could affect healthcare access:: none Patient has the following chronic illnesses:: No chronic medical hx reported How is presenting disease/condition affected by chronic disease/condition?: no chronic disease Evaluation data The following diagnostics were reviewed and interpreted by me:: lab results and radiology exam(s) Lab and/or radiology exams considered but not ordered:: None Interpretation Summary: Ordering Physician: Tomasz Lara PA-C Date of Service: 02/06/25 Procedure(s): US OB >= 14 weeks Fetus Accession Number(s): [id number] cc: Shamir Sher MD; Tomasz Lara PA-C~ Examination: Complete OB ultrasound greater than 14 weeks Date and time of exam: February 06, 2025 1351 hours INDICATIONS: Vaginal bleeding today Findings: Viable intrauterine single fetus with single amniotic sac presentation transverse head maternal right Cardiac motion 140 BPM Placenta posterior grade 1 Umbilical cord insertion 3 vessel seen Amniotic fluid volume adequate Cervix 2.7 cm Ovaries obscured by bowel gas. Composite estimated gestational age based on BPD, head circumference, abdominal circumference, femur length is 15 weeks 3 days Estimated weight 110 g. Survey of intracranial anatomy, spinal anatomy, abdominal anatomy, four-chamber heart performed with no abnormalities identified. Impression: Viable intrauterine gestation transverse presentation. Dictated By: Shamir Sher MD Signed By: <Electronically signed by Shamir Sher MD in OV> 02/06/25 1419 Medications / Prescriptions Medications or Prescriptions considered but not ordered:: none Medication administrations:: none Consultations Consultation(s) initiated? (list below): No Diagnosis OB Contractions Differential Diagnosis: other (Vaginal bleeding, threatened , miscarriage ) Most likely diagnosis given after review of the tests above:: Antepartum bleeding, second trimester Admission Indicated Admission indicated?: not indicated Explain why admission is indicated or not indicated:: Does not meet admission criteria Admission Request Was there a request for admission?: No Disposition Plan Disposition Plan: Discharge Discharge Attestation Discharge Attestation: The patient and all family members were given an opportunity to ask questions and understood the discharge instructions. Discharge instructions specifically effects, indications for sooner follow up or return to the emergency department, and the expected course of current diagnosis. Patient condition: Stable Discharge Plan Plan Patient Disposition: HOME (Self Care) Patient condition on transfer: Stable Prescriptions/Referrals Prescriptions/Med Rec: No Action hydroxyzine HCl 25 mg Tablet 25 mg PO QID PRN (Reason: Itching) hydrocodone-acetaminophen 5-300 mg tablet 1 tab PO Q4H MDD 5 PRN (Reason: pain) Qty: 30 0RF PNV no.95-ferrous fumarate-FA [] 28 mg iron- 800 mcg Tablet 1 tab PO QDAY ferrous sulfate 324 mg (65 mg iron) Tablet,Delayed Release (Dr/Ec) 324 mg PO QDAY cyclobenzaprine 10 mg tablet 10 mg PO Q8H PRN (Reason: muscle spasm / pain) Qty: 15 0RF acetaminophen 650 mg tablet extended release 650 mg PO Q8H PRN (Reason: fever or pain) Qty: 30 0RF Rx Instructions: swallow whole; do not chew/break/dissolve/open ibuprofen 600 mg tablet 600 mg PO Q8H PRN (Reason: fever or pain) Qty: 30 0RF Referrals: No Primary/Family,Physician [Primary Care Provider] - In 1 week Problem List Clinical Impression: Antepartum bleeding, second trimester Patient/Caregiver Discharge Instructions Education Materials: Bleeding During Early Additional Instructions: Return to emergency department for any worsening symptoms as needed. Print Language: Uzbek Stand Alone Forms: Maggie Award Info., Patient Portal Info Letter
[2025-02-06 13:13] VITALS: BP 98/62; PULSE 88; RESP 18; TEMP 36.9; O2SAT 99
--- NOTE | 2025-02-06 13:34 | XR_ITS ---
Examination: Complete OB ultrasound greater than 14 weeks Date and time of exam: February 06, 2025 1351 hours INDICATIONS: Vaginal bleeding today Findings: Viable intrauterine single fetus with single amniotic sac presentation transverse head maternal right Cardiac motion 140 BPM Placenta posterior grade 1 Umbilical cord insertion 3 vessel seen Amniotic fluid volume adequate Cervix 2.7 cm Ovaries obscured by bowel gas. Composite estimated gestational age based on BPD, head circumference, abdominal circumference, femur length is 15 weeks 3 days Estimated weight 110 g. Survey of intracranial anatomy, spinal anatomy, abdominal anatomy, four-chamber heart performed with no abnormalities identified. Impression: Viable intrauterine gestation transverse presentation.
[2025-02-06 13:51] LABS: Basophils # (Auto) 0.0 Thou/mm3 (0.0-0.2); Basophils % (Auto) 0 % (0-2.5); Eosinophils # (Auto) 0.2 Thou/mm3 (0.0-0.5); Eosinophils % (Auto) 2 % (0-10); Hematocrit 31.4 % (36.0-46.0); Hemoglobin 11.0 g/dL (12.0-16.0); Immature Granulocytes Auto 0.02 Thou/mm3 (0.00-0.00); Lymphocytes # (Auto) 2.2 Thou/mm3 (1.0-4.8); Lymphocytes % (Auto) 25 % (10-50); Mean Corpuscular HGB Conc 35.0 g/dl (31.0-37.0); Mean Corpuscular Hemoglobin 30.6 pg (25.0-35.0); Mean Corpuscular Volume 87 fL (80-100); Monocytes # (Auto) 0.8 Thou/mm3 (0.0-0.8); Monocytes % (Auto) 9 % (0-12); Neutrophils # (Auto) 5.7 Thou/mm3 (1.8-7.7); Neutrophils % (Auto) 64 % (37-80); Nucleated Red Blood Cell # 0.00 Thou/mm3 (0.00-0.00); Nucleated Red Blood Cell % 0 /100 WBC (0); Platelet Count 286 Thou/mm3 (140-440); RDW Standard Deviation 41.5 fL (36.4-46.3); Red Blood Count 3.60 Miln/mm3 (4.00-5.20); White Blood Count 9.0 Thou/mm3 (3.6-11.0)
[2025-02-06 14:09] LABS: Collection Type, Urine Clean Catch; WBC,Urine 0 /hpf (0-5)
[2025-02-06 14:15] LABS: Alanine Aminotransferase 63 U/L (10-49); Albumin, Serum 4.0 gm/dL (3.5-5.0); Albumin/Globulin Ratio 2.0 (1.2-2.2); Alkaline Phosphatase 71 U/L (46-116); Anion Gap 8 (7-16); Aspartate Amino Transferase 30 U/L (0-34); BUN/Creatinine Ratio 12 Ratio (12-20); Bilirubin,Total 0.3 mg/dL (0.3-1.2); Blood Urea Nitrogen 6 mg/dL (9-23); Calcium 9.5 mg/dL (8.3-10.6); Calcium (Corrected) 9.5 mg/dL (8.5-10.1); Carbon Dioxide 23.2 mMol/L (20.0-31.0); Chloride 103 mMol/L (98-107); Creatinine (Component) 0.5 mg/dL (0.6-1.3); Estimated Creatinine Clearance 105.3 mL/min (>60); Globulin 2.0 gm/dL (2.3-3.5); Glucose 85 mg/dL (74-106); Osmolality,Calculated 264 (275-295); Potassium 4.1 mMol/L (3.4-5.1); Sodium 134 mMol/L (136-145); Total Protein 6.0 gm/dL (5.7-8.2); eGFR > 60 See Note
[2025-02-06 14:35] LABS: Amorphous Crystals,Urine Present (Absent); Bilirubin,Urine Negative (Negative); Blood,Urine 2+ (Negative); Clarity,Urine Turbid (Clear/Hazy); Color,Urine Lt-Yellow (Lt Yel-Yel); Glucose, Urine Negative (Negative); Ketones,Urine Negative (Negative); Leukocyte Esterase,Urine Negative (Negative); Nitrite,Urine Negative (Negative); PH,Urine 7.5 (5.0-7.0); Protein,Urine Negative (Neg - Trace); RBC,Urine 6 /hpf (0-3); Specific Gravity,Urine 1.022 (1.001-1.035); Squamous Epithelial Cell,Urine 7 /hpf (0-5); Urobilinogen,Urine Negative mg/dL (0.0-1.0)
[2025-02-06 14:42] LABS: Beta HCG,Quantitative 55243 mIU/mL (<5.0)
== END 2025-02-06 17:15 | disposition home or self-care (01) ==
PROVIDERS: Physician Assistant; Emergency Provider Family Medicine
DX: O20.9 Hemorrhage in early pregnancy, unspecified (principal); Z3A.15 15 weeks gestation of pregnancy
CPT/HCPCS: 36415; 76805; 80053; 81001; 83690; 84702; 85025; 86900; 86901; 99283